=== PATIENT | male | born 1965 | race Hispanic/Latino ===

== ENCOUNTER 2018-06-04 21:36 | Emergency (ER) | payer SELFPAY ==
[2018-06-04 22:22] LABS: #Basophils 0.1 thou/uL (0.0-0.2); #Eosinphils 0.1 thou/uL (0.0-0.7); #Lymphocytes 1.7 thou/uL (1.20-3.40); #Monocytes 0.3 thou/uL (0.11-0.59); #Neutrophils 3.4 thou/uL (1.40-6.50); %Eosinophils 2.1 % (0.0-10.0); %Lymphocytes 30.5 % (21.0-51.0); %Monocytes 4.8 % (0.0-10.0); %Neutrophils 61.7 % (42.0-75.0); Hemoglobin 14.8 g/dL (14.0-18.0); Mean Corpuscular HGB CONC 33.8 g/dL (32.0-36.0); Mean Corpuscular Hemoglobin 33.9 pg (27.0-31.0); Mean Platelet Volume 7.4 fL (7.4-10.4); Platelet Count 306 thou/uL (130-400); RBC Distribution Width 12.7 % (11.5-14.5); Red Blood Cell (RBC) Count 4.36 mill/uL (4.70-6.10); White Blood Cell (WBC) Count 5.6 thou/uL (4.8-10.8)
--- NOTE | 2018-06-04 22:30 | RAD ---
Radiograph chest one view: HISTORY: Chest pain FINDINGS: The visualized lung orourke are clear. The cardiomediastinal silhouette is normal. No pneumothorax. Th e lateral costophrenic angles are sharp. IMPRESSION: No acute cardiopulmonary findings.
[2018-06-04 22:44] LABS: ALT (SGPT) 23 U/L (8-55); AST (SGOT) 21 U/L (5-34); Albumin 4.2 g/dL (3.5-5.0); Alkaline Phosphatase 58 U/L (40-150); Anion Gap 12 mmol/L (10-20); BUN (Urea Nitrogen) 8 mg/dL (8.4-25.7); Bilirubin, Total 0.4 mg/dL (0.2-1.2); CK (CPK) 204 U/L (30-200); Calc. Creatinine Clearance 0 mL/min (70-130); Calcium 9.2 mg/dL (7.8-10.44); Carbon Dioxide 26 mmol/L (22-29); Chloride 104 mmol/L (98-107); Estimated GFR-MDRD Greater than 90; Globulin 2.8 g/dL (2.4-3.5); Glucose 125 mg/dL (70-105); Potassium 3.7 mmol/L (3.5-5.1); Sodium 138 mmol/L (136-145)
[2018-06-04] MEDS ORDERED: Ibuprofen 800 MG TAB ONE (23:56)
== END 2018-06-05 | disposition home or self-care (01) ==
LOC: ERS 21:36
DX: R07.9 Chest pain, unspecified (principal); F17.210 Nicotine dependence, cigarettes, uncomplicated
CPT/HCPCS: 36415; 71045; 80053; 82550; 84484; 85025; 93005

== ENCOUNTER 2018-11-11 15:25 | Emergency (ER) | payer BC, OTHER, SELFPAY ==
[2018-11-11] MEDS ORDERED: Metoclopramide HCl 10 MG/2 ML VIAL ONE (16:30)
[2018-11-11] MEDS ORDERED: Ketorolac Tromethamine 30 MG/ML VIAL ONE (16:30)
[2018-11-11] MEDS ORDERED: diphenhydrAMINE 50 MG/ML VIAL ONE (16:30)
== END 2018-11-11 18:00 | disposition home or self-care (01) ==
LOC: ERS 15:25
DX: R51 Headache (principal); I10 Essential (primary) hypertension; F17.210 Nicotine dependence, cigarettes, uncomplicated
CPT/HCPCS: 96365; 96375; J1200; J1885; J2765